=== PATIENT | male | born 1955 | race Caucasian/White ===

== ENCOUNTER → 2021-01-14 | Day surgery (SDC) | payer OTHER ==
[~2021-01-14] VITALS: Ht 175.3 cm; Wt 81.6 kg
[~2021-01-14] MED LIST: AMLO-496 PO; DexAMETHasone SOD PHOS 10MG/1ML VIAL INJ ONE; GLYCOPYRROLATE 0.2 MG/ML 1ML VIAL IV ONE; HYDROmorphone HCL 2 MG/ML VL IV PRN; METOCLOPRAMIDE HCL 5MG/ml INJ 2ml VIAL IV PRN; NEOSTIGMINE 1 MG/ML INJ (10mg/10ML VIAL) IV ONE; NITR-52 PO; ONDANSETRON HCL 4 MG/2 ML VIAL IV PRN; ONDANSETRON HCL 4 MG/2 ML VIAL ONE; PROPOFOL 10 MG/ML 20 ML IV ONE; ceFAZolin 1GM/50ML 50 ML IV ONE; fentaNYL CITRATE 100 MCG/2 ML VL ONE
[2021-01-14 11:30] VITALS: BP 139/69
== END | disposition home or self-care (01) ==
LOC: SUR 05:58
PROVIDERS: ATTEND Urology
DX: N20.1 Calculus of ureter (principal); I10 Essential (primary) hypertension; Z98.890 Other specified postprocedural states; Z20.822 Contact with and (suspected) exposure to COVID-19; Z79.899 Other long term (current) drug therapy
CPT/HCPCS: 52356; 74018; 88300; C2617; J0690; J1100; J2405; J2704; J3010; U0003; 76001